=== PATIENT | female | born 1960 | race African-American/Black ===

== ENCOUNTER 2017-08-16 21:53 | Emergency (ER) | payer OTHER, MEDICARE, MEDICAID ==
[~2017-08-16] VITALS: Ht 185.4 cm; Wt 100.2 kg
[~2017-08-16 21:53] MED LIST: CEPHALEXIN500 MG OR; FLEXERIL OR; LORTAB 5 OR; NO MEDS; PLAVIX75 MG PO; PT DOES NOT KNOW MED; ULTRAM50 M1 OR; ULTRAM50 MG OR; UNKNOWN BP MED; [UNRECOGNIZED DRUG - REMARK]
[2017-08-16 22:19] VITALS: BP 168/108
== END 2017-08-17 00:04 | disposition home or self-care (01) | DRG 552 ==
LOC: ED 21:53
DX: S16.1XXA Strain of muscle, fascia and tendon at neck level, initial encounter (principal); E04.9 Nontoxic goiter, unspecified; S20.211A Contusion of right front wall of thorax, initial encounter; S20.212A Contusion of left front wall of thorax, initial encounter; V43.52XA Car driver injured in collision with other type car in traffic accident, initial encounter; Y92.414 Local residential or business street as the place of occurrence of the external cause; W22.11XA Striking against or struck by driver side automobile airbag, initial encounter

== ENCOUNTER 2017-09-02 11:55 | Emergency (ER) | payer MEDICARE, MEDICAID ==
[~2017-09-02] VITALS: Ht 185.4 cm; Wt 102.0 kg
[2017-09-02 12:30] VITALS: BP 160/96
== END 2017-09-02 12:26 | disposition home or self-care (01) ==
LOC: ED 11:55
DX: S00.451A Superficial foreign body of right ear, initial encounter (principal); I10 Essential (primary) hypertension; I25.2 Old myocardial infarction; G89.29 Other chronic pain; M54.9 Dorsalgia, unspecified; E78.00 Pure hypercholesterolemia, unspecified; X58.XXXA Exposure to other specified factors, initial encounter

== ENCOUNTER 2018-04-12 14:50 | Emergency (ER) | payer MEDICARE, MEDICAID ==
[~2018-04-12] VITALS: Ht 185.4 cm; Wt 101.4 kg
[2018-04-12 15:25] VITALS: BP 143/79
== END 2018-04-12 15:25 | disposition home or self-care (01) ==
LOC: ED 14:50
DX: M79.5 Residual foreign body in soft tissue (principal); I10 Essential (primary) hypertension; F17.210 Nicotine dependence, cigarettes, uncomplicated; Z79.899 Other long term (current) drug therapy

== ENCOUNTER 2018-05-19 16:16 | Emergency (ER) | payer MEDICARE, MEDICAID ==
[~2018-05-19] VITALS: Ht 185.4 cm; Wt 106.4 kg
[2018-05-19] MEDS ORDERED: RANITIDINE HCL300 MG PO (16:40)
[2018-05-19] MEDS ORDERED: NEURONTIN300 MG PO (16:41)
[2018-05-19] MEDS ORDERED: DIAZEPAM5 M1 PO (16:41)
[2018-05-19] MEDS ORDERED: TIZANIDINE HCL4 MG PO (16:41)
[2018-05-19] MEDS ORDERED: MELOXICAM15 MG PO (16:42)
[2018-05-19] MEDS ORDERED: HYDROMORPHON8 MG PO (16:42)
[2018-05-19] MEDS ORDERED: AMLODIPINE BESY10 MG PO (16:42)
[2018-05-19] MEDS ORDERED: MORPHINE SUL60 MG PO (16:42)
[2018-05-19] MEDS ORDERED: HYZAAR1 TA1 PO (16:43)
[2018-05-19 17:30] VITALS: BP 135/88
== END 2018-05-19 17:35 | disposition home or self-care (01) ==
LOC: ED 16:16
DX: S39.012A Strain of muscle, fascia and tendon of lower back, initial encounter (principal); S80.01XA Contusion of right knee, initial encounter; I10 Essential (primary) hypertension; G89.29 Other chronic pain; M25.562 Pain in left knee; M54.9 Dorsalgia, unspecified; F17.210 Nicotine dependence, cigarettes, uncomplicated; W01.0XXA Fall on same level from slipping, tripping and stumbling without subsequent striking against object, initial encounter; Y92.009 Unspecified place in unspecified non-institutional (private) residence as the place of occurrence of the external cause

== ENCOUNTER 2018-11-08 17:38 | Observation (INO) | payer MEDICARE, MEDICAID ==
[~2018-11-08] VITALS: Ht 185.4 cm; Wt 117.0 kg
[~2018-11-08 17:38] MED LIST changes: +AMLODIPINE BESY10 MG PO; +DIAZEPAM5 M1 PO; +HYDROMORPHON8 MG PO; +HYZAAR1 TA1 PO; +MELOXICAM15 MG PO; +MORPHINE SUL60 MG PO; +NEURONTIN300 MG PO; +RANITIDINE HCL300 MG PO; +TIZANIDINE HCL4 MG PO
[2018-11-08 23:10] LABS: URINE BLOOD DIPSTICK LARGE (NEGATIVE); URINE COLOR YELLOW; URINE GLUCOSE - DIPSTICK NEGATIVE (NEGATIVE); URINE KETONE TRACE mg/dL (NEGATIVE); URINE LEUK ESTERASE NEGATIVE (NEGATIVE); URINE NITRITE - DIPSTICK NEGATIVE (Negative); URINE PROTEIN - DIPSTICK >=300 mg/dL (NEG-TRACE); URINE SPECIFIC GRAVITY >=1.030; URINE UROBILINOGEN - DIPSTICK 0.2 E.U./dL (0.2)
[2018-11-08 23:14] LABS: HEMATOCRIT 49.1 % (37.0-47.0); HEMOGLOBIN 16.3 g/dl (12.0-16.0); IMMATURE GRANULOCYTES 0.5 % (0.0-5.0); MEAN CELL VOLUME 84.1 fL CALC (80.0-100.0); MEAN CORPUSCULAR HGB 27.9 pG CALC (26.0-32.0); MEAN CORPUSCULAR HGB CONC 33.2 g/L CALC (32.0-36.0); NEUT# 8.21 thou/uL (2.00-7.15); RED BLOOD COUNT 5.84 mill/uL (4.20-5.60); RED CELL DISTRI WIDTH 14.2 % (11.5-15.5)
[2018-11-08 23:26] LABS: ALBUMIN 5.3 g/dL (3.2-5.0); ALKALINE PHOSPHATASE 149 u/l (38-126); AMYLASE 124 u/l (30-110); ANION GAP 20 (6-22 (CALC)); BILIRUBIN, TOTAL 0.5 mg/dL (0.0-1.4); BUN 18 mg/dL (7-17); BUN/CREATININE RATIO 16 (12-20 (CALC)); CARBON DIOXIDE 21 mmol/l (22-30); CHLORIDE 105 mmol/l (95-108); CREATININE 1.1 mg/dL (0.5-1.0); GFR 51 ML/MIN (>=60 (CALC)); GFR FOR AFR.AMER. > 60 ML/MIN (>=60 (CALC)); LIPASE 94 u/l (23-300); POTASSIUM 4.1 mmol/l (3.5-5.1); SGOT/AST 30 u/l (14-36); SODIUM 141 mmol/l (137-146); TOTAL PROTEIN 9.8 g/dL (6.3-8.2)
[2018-11-08 23:32] LABS: URINE BILIRUBIN - DIPSTICK NEGATIVE (NEGATIVE)
[2018-11-08 23:33] LABS: URINE SQUAMOUS EPITHELIAL CELL FEW EPI/hpf (0-FEW)
[2018-11-08 23:34] LABS: URINE BACTERIA MANY hpf; URINE MUCUS FEW hpf (NONE-FEW)
[2018-11-09 03:35] VITALS: BP 134/76
[2018-11-09 04:35] VITALS: BP 176/74
[2018-11-09 08:00] VITALS: BP 177/82
[2018-11-09 09:11] LABS: HEMATOCRIT 44.4 % (37.0-47.0); HEMOGLOBIN 14.7 g/dl (12.0-16.0); IMMATURE GRANULOCYTES 0.3 % (0.0-5.0); MEAN CELL VOLUME 84.3 fL CALC (80.0-100.0); MEAN CORPUSCULAR HGB 27.9 pG CALC (26.0-32.0); MEAN CORPUSCULAR HGB CONC 33.1 g/L CALC (32.0-36.0); NEUT# 9.05 thou/uL (2.00-7.15); RED BLOOD COUNT 5.27 mill/uL (4.20-5.60); RED CELL DISTRI WIDTH 14.1 % (11.5-15.5)
[2018-11-09 12:25] LABS: C. DIFFICILE TOXIN A&B NEGATIVE (NEGATIVE)
[2018-11-09 15:15] VITALS: BP 174/89
[2018-11-09 15:52] LABS: ALBUMIN 4.3 g/dL (3.2-5.0); ALKALINE PHOSPHATASE 129 u/l (38-126); ANION GAP 15 (6-22 (CALC)); BILIRUBIN, TOTAL 0.5 mg/dL (0.0-1.4); BUN 19 mg/dL (7-17); BUN/CREATININE RATIO 19 (12-20 (CALC)); CARBON DIOXIDE 20 mmol/l (22-30); CHLORIDE 110 mmol/l (95-108); GFR 57 ML/MIN (>=60 (CALC)); GFR FOR AFR.AMER. > 60 ML/MIN (>=60 (CALC)); POTASSIUM 3.8 mmol/l (3.5-5.1); SGOT/AST 22 u/l (14-36); SODIUM 142 mmol/l (137-146); TOTAL PROTEIN 7.8 g/dL (6.3-8.2)
[2018-11-09 19:13] VITALS: BP 181/85
[2018-11-09 23:57] VITALS: BP 154/93
[2018-11-10 04:10] VITALS: BP 180/85
[2018-11-10 06:26] LABS: HEMATOCRIT 43.2 % (37.0-47.0); HEMOGLOBIN 14.1 g/dl (12.0-16.0); IMMATURE GRANULOCYTES 0.5 % (0.0-5.0); MEAN CELL VOLUME 85.4 fL CALC (80.0-100.0); MEAN CORPUSCULAR HGB 27.9 pG CALC (26.0-32.0); MEAN CORPUSCULAR HGB CONC 32.6 g/L CALC (32.0-36.0); NEUT# 7.42 thou/uL (2.00-7.15); RED BLOOD COUNT 5.06 mill/uL (4.20-5.60); RED CELL DISTRI WIDTH 14.2 % (11.5-15.5)
[2018-11-10 06:39] LABS: ALKALINE PHOSPHATASE 115 u/l (38-126); ANION GAP 13 (6-22 (CALC)); BILIRUBIN, TOTAL 0.5 mg/dL (0.0-1.4); BUN 14 mg/dL (7-17); BUN/CREATININE RATIO 16 (12-20 (CALC)); CARBON DIOXIDE 21 mmol/l (22-30); CHLORIDE 109 mmol/l (95-108); CREATININE 0.9 mg/dL (0.5-1.0); GFR > 60 ML/MIN (>=60 (CALC)); GFR FOR AFR.AMER. > 60 ML/MIN (>=60 (CALC)); MAGNESIUM 2.1 mg/dL (1.6-2.3); POTASSIUM 3.7 mmol/l (3.5-5.1); SGOT/AST 20 u/l (14-36); SODIUM 139 mmol/l (137-146); TOTAL PROTEIN 7.4 g/dL (6.3-8.2)
[2018-11-10 07:30] VITALS: BP 173/82
[2018-11-10 08:39] VITALS: BP 160/67
[2018-11-10 15:38] VITALS: BP 178/92
[2018-11-10 19:11] VITALS: BP 164/81
[2018-11-10] MEDS ORDERED: PROTONIX40 M2 PO (19:22)
[2018-11-10] MEDS ORDERED: METRONIDAZOL500 MG PO (19:22)
[2018-11-10] MEDS ORDERED: SUCRALFATE1 GM/10 ML PO (19:22)
[2018-11-10] MEDS ORDERED: LIDOCAINE21 PO (19:22)
== END 2018-11-10 20:35 | disposition home or self-care (01) ==
LOC: ED 17:38 → ED-I 11-09 02:00 → ED 11-09 02:38 → MS2 11-09 02:39
PROVIDERS: Emergency Medicine; ADMIT Internal Medicine Nephrology; ATTEND Internal Medicine Nephrology
DX: K52.9 Noninfective gastroenteritis and colitis, unspecified (principal); K29.70 Gastritis, unspecified, without bleeding; E86.0 Dehydration; N17.9 Acute kidney failure, unspecified; R73.9 Hyperglycemia, unspecified; I10 Essential (primary) hypertension; M17.11 Unilateral primary osteoarthritis, right knee; G89.4 Chronic pain syndrome; G62.9 Polyneuropathy, unspecified; K21.9 Gastro-esophageal reflux disease without esophagitis; K44.9 Diaphragmatic hernia without obstruction or gangrene; E66.9 Obesity, unspecified; F17.210 Nicotine dependence, cigarettes, uncomplicated; Z68.34 Body mass index [BMI] 34.0-34.9, adult; Z79.1 Long term (current) use of non-steroidal anti-inflammatories (NSAID); Z79.899 Other long term (current) drug therapy
CPT/HCPCS: Q9967; S0164

== ENCOUNTER → 2019-01-15 | Outpatient (REF) | payer MEDICARE, MEDICAID ==
[~2019-01-15] MED LIST changes: +BACTRIM DS1 TAB PO; +LIDOCAINE21 PO; +LOMOTIL2.5 MG PO; +METRONIDAZOL500 MG PO; +PROTONIX40 M2 PO; +SUCRALFATE1 GM/10 ML PO
== END | disposition home or self-care (01) ==
LOC: DI 08:27
PROVIDERS: ATTEND Orthopaedic Surgery
DX: M25.562 Pain in left knee (principal); Z47.1 Aftercare following joint replacement surgery; Z96.652 Presence of left artificial knee joint

== ENCOUNTER 2019-01-28 16:37 | Emergency (ER) | payer MEDICARE, MEDICAID ==
[~2019-01-28] VITALS: Ht 185.4 cm; Wt 114.0 kg
[~2019-01-28 16:37] MED LIST changes: -BACTRIM DS1 TAB PO; -LOMOTIL2.5 MG PO
[2019-01-28 17:12] LABS: HEMATOCRIT 43.1 % (37.0-47.0); HEMOGLOBIN 13.8 g/dl (12.0-16.0); IMMATURE GRANULOCYTES 0.4 % (0.0-5.0); MEAN CELL VOLUME 86.2 fL CALC (80.0-100.0); MEAN CORPUSCULAR HGB 27.6 pG CALC (26.0-32.0); NEUT# 4.3 thou/uL (2.00-7.15); RED CELL DISTRI WIDTH 14.6 % (11.5-15.5)
[2019-01-28 17:24] LABS: ALKALINE PHOSPHATASE 155 u/l (38-126); ANION GAP 17 (6-22 (CALC)); BILIRUBIN, TOTAL 0.5 mg/dL (0.0-1.4); BUN 23 mg/dL (7-17); BUN/CREATININE RATIO 20 (12-20 (CALC)); CARBON DIOXIDE 23 mmol/l (22-30); CHLORIDE 103 mmol/l (95-108); CREATININE 1.2 mg/dL (0.5-1.0); GFR 46 ML/MIN (>=60 (CALC)); GFR FOR AFR.AMER. 56 ML/MIN (>=60 (CALC)); LIPASE 90 u/l (23-300); POTASSIUM 4.3 mmol/l (3.5-5.1); SGOT/AST 25 u/l (14-36); SODIUM 139 mmol/l (137-146)
[2019-01-28 17:27] LABS: ALBUMIN 4.9 g/dL (3.2-5.0); TOTAL PROTEIN 9.2 g/dL (6.3-8.2)
[2019-01-28 20:34] LABS: URINE BILIRUBIN - DIPSTICK NEGATIVE (NEGATIVE); URINE BLOOD DIPSTICK TRACE-INTACT (NEGATIVE); URINE COLOR YELLOW; URINE GLUCOSE - DIPSTICK NEGATIVE (NEGATIVE); URINE KETONE NEGATIVE (NEGATIVE); URINE LEUK ESTERASE NEGATIVE (NEGATIVE); URINE NITRITE - DIPSTICK NEGATIVE (Negative); URINE PH 5.5 (4.5-8.0); URINE PROTEIN - DIPSTICK NEGATIVE (NEG-TRACE); URINE SPECIFIC GRAVITY >=1.030; URINE UROBILINOGEN - DIPSTICK 0.2 E.U./dL (0.2)
[2019-01-28] MEDS ORDERED: LOMOTIL2.5 MG PO (20:51)
[2019-01-28] MEDS ORDERED: BACTRIM DS1 TAB PO (20:51)
[2019-01-28 21:24] VITALS: BP 109/57
== END 2019-01-28 21:20 | disposition left against medical advice (07) ==
LOC: ED 16:37 → ED-I 20:40 → ED 21:20
PROVIDERS: Family Medicine
DX: R07.9 Chest pain, unspecified (principal); K52.9 Noninfective gastroenteritis and colitis, unspecified; R10.13 Epigastric pain; Z91.19 Patient's noncompliance with other medical treatment and regimen

== ENCOUNTER 2021-02-09 | Emergency (ER) | payer MEDICARE, MEDICAID ==
[~2021-02-09] MED LIST changes: +BACTRIM DS1 TAB PO; +LOMOTIL2.5 MG PO; +PHENERGAN25 MG/TAB PO
[2021-03-31] MEDS ORDERED: ALBUTEROL SUL0.083 % IN (09:02)
[2021-03-31] MEDS ORDERED: LIPITOR40 M1 PO (09:03)
[2021-03-31] MEDS ORDERED: FAMOTIDINE20 M1 PO (09:03)
[2021-03-31] MEDS ORDERED: MORPHINE SUL30 M3 PO (09:03)
[2021-03-31] MEDS ORDERED: TIZANIDINE4 MG PO (09:03)
[2021-03-31] MEDS ORDERED: METFORMIN HCL1000 MG PO (09:03)
[2021-03-31] MEDS ORDERED: ASPIRIN81 MG PO (09:03)
[2021-03-31] MEDS ORDERED: DICLOFENAC SODI75 MG PO (09:04)
[2021-03-31] MEDS ORDERED: ZOLPIDEM10 M1 PO (09:04)
[2021-03-31] MEDS ORDERED: GABAPENTIN100 MG PO (09:04)
[2021-03-31] MEDS ORDERED: LOSARTAN POTASS50 MG PO (09:04)
[2021-03-31] MEDS ORDERED: HYDROMORPHONE HY8 MG (09:05)
== END 2021-02-09 07:30 | disposition home or self-care (01) ==
PROC: 0HB2XZZ Excision of Right Ear Skin, External Approach (ICD-10-PCS; principal; 2021-02-09)
DX: L91.0 Hypertrophic scar (principal); E66.9 Obesity, unspecified; I10 Essential (primary) hypertension; F17.210 Nicotine dependence, cigarettes, uncomplicated; E78.5 Hyperlipidemia, unspecified; R05 Cough; R07.9 Chest pain, unspecified; E11.65 Type 2 diabetes mellitus with hyperglycemia

== ENCOUNTER 2023-01-25 15:05 | Emergency (ER) | payer MEDICARE, MEDICAID ==
[~2023-01-25] VITALS: Ht 185.4 cm; Wt 120.0 kg
[2023-01-25] VITALS (7 sets, daily range): BP systolic 109–148; BP diastolic 72–92
[~2023-01-25 15:05] MED LIST changes: +ALBUTEROL SUL0.083 % IN; +ASPIRIN81 MG PO; +DICLOFENAC SODI75 MG PO; +FAMOTIDINE20 M1 PO; +GABAPENTIN100 MG PO; +HYDROMORPHONE HY8 MG; +LIPITOR40 M1 PO; +LOSARTAN POTASS50 MG PO; +METFORMIN HCL1000 MG PO; +MORPHINE SUL30 M3 PO; +TIZANIDINE4 MG PO; +ZOLPIDEM10 M1 PO
[2023-01-25 15:44] LABS: BASO% 0.4 % (0-3); EOS% 0.6 % (0-8); HEMATOCRIT 48.5 % (37.0-47.0); HEMOGLOBIN 15.4 g/dl (12.0-16.0); IMMATURE GRANULOCYTES 0.1 % (0.0-5.0); LYMPH% 32.5 % (15-41); MEAN CELL VOLUME 88.7 fL CALC (80.0-100.0); MEAN CORPUSCULAR HGB 28.2 pG CALC (26.0-32.0); MEAN CORPUSCULAR HGB CONC 31.8 g/dL CAL (32.0-36.0); MONO% 5.9 % (2-13); NEUT# 4.69 thou/uL (2.00-7.15); NEUT% 60.5 % (42-76); RED BLOOD COUNT 5.47 mill/uL (4.20-5.60)
[2023-01-25 15:45] LABS: GFR FOR AFR.AMER. > 60 ML/MIN (>=60 (CALC)); GFR OTHER RACES 50 ML/MIN (>=60 (CALC))
[2023-01-25 16:15] LABS: ALBUMIN 4.5 g/dL (3.2-5.0); ALKALINE PHOSPHATASE 80 u/l (38-126); ANION GAP 13 (6-22 (CALC)); BILIRUBIN, TOTAL 0.3 mg/dL (0.02-1.3); BUN 19 mg/dL (8-23); BUN/CREATININE RATIO 18 (12-20 (CALC)); CHLORIDE 111 mmol/l (95-108); CREATININE 1.1 mg/dL (0.5-1.0); GFR FOR AFR.AMER. > 60 ML/MIN (>=60 (CALC)); GFR OTHER RACES 50 ML/MIN (>=60 (CALC)); LIPASE 164 u/l (23-300); POTASSIUM 4.4 mmol/l (3.5-5.1); SGOT/AST 21 u/l (9-36); SODIUM 140 mmol/l (137-146); TOTAL PROTEIN 7.7 g/dL (6.3-8.2)
[2023-01-25 16:21] LABS: CARBON DIOXIDE 20 mmol/l (22-30)
[2023-01-25 16:38] LABS: URINE BILIRUBIN - DIPSTICK NEGATIVE (NEGATIVE); URINE BLOOD DIPSTICK SMALL (NEGATIVE); URINE COLOR YELLOW; URINE GLUCOSE - DIPSTICK NEGATIVE (NEGATIVE); URINE KETONE NEGATIVE (NEGATIVE); URINE LEUK ESTERASE NEGATIVE (NEGATIVE); URINE PH 5.5 (4.5-8.0); URINE PROTEIN - DIPSTICK NEGATIVE (NEG-TRACE); URINE SPECIFIC GRAVITY >=1.030; URINE UROBILINOGEN - DIPSTICK 0.2 E.U./dL (0.2)
[2023-01-25 16:40] LABS: URINE NITRITE - DIPSTICK NEGATIVE (Negative)
[2023-01-25 16:51] LABS: URINE SQUAMOUS EPITHELIAL CELL FEW EPI/hpf (0-FEW)
[2023-01-25] MEDS ORDERED: PROTONIX40 M2 PO (17:10)
[2023-01-25] MEDS ORDERED: ZOFRAN4 MG/TAB PO (17:10)
== END 2023-01-25 17:39 | disposition home or self-care (01) ==
LOC: ED 15:05
PROVIDERS: Family Medicine
DX: R10.13 Epigastric pain (principal); I10 Essential (primary) hypertension; E66.9 Obesity, unspecified; E11.9 Type 2 diabetes mellitus without complications; E78.5 Hyperlipidemia, unspecified; M06.9 Rheumatoid arthritis, unspecified; F17.210 Nicotine dependence, cigarettes, uncomplicated; Z79.84 Long term (current) use of oral hypoglycemic drugs
CPT/HCPCS: Q9967; S0164

== ENCOUNTER 2023-05-20 10:58 | Emergency (ER) | payer MEDICARE, MEDICAID ==
[~2023-05-20] VITALS: Ht 185.4 cm; Wt 113.0 kg
[~2023-05-20 10:58] MED LIST changes: +ZOFRAN4 MG/TAB PO
[2023-05-20 11:05] VITALS: BP 144/80
[2023-05-20 11:20] VITALS: BP 110/92
[2023-05-20] MEDS ORDERED: KEFLEX500 MG PO (12:06)
[2023-05-20 12:28] VITALS: BP 144/80
== END 2023-05-20 12:06 | disposition home or self-care (01) ==
LOC: ED 10:58
PROC: 0HQGXZZ Repair Left Hand Skin, External Approach (ICD-10-PCS; principal; 2023-05-20)
DX: S61.211A Laceration without foreign body of left index finger without damage to nail, initial encounter (principal); I10 Essential (primary) hypertension; E11.9 Type 2 diabetes mellitus without complications; E78.5 Hyperlipidemia, unspecified; M06.9 Rheumatoid arthritis, unspecified; F17.210 Nicotine dependence, cigarettes, uncomplicated; W26.0XXA Contact with knife, initial encounter; Y93.G1 Activity, food preparation and clean up; Z79.84 Long term (current) use of oral hypoglycemic drugs

== ENCOUNTER 2024-11-28 16:39 | Emergency (ER) | payer MEDICARE, MEDICAID ==
[~2024-11-28] VITALS: Ht 182.9 cm; Wt 122.0 kg
[2024-11-28] VITALS (9 sets, daily range): BP systolic 131–158; BP diastolic 73–99
[~2024-11-28 16:39] MED LIST changes: +ALLEGRA HIVES180 MG; +DICYCLOMINE HCL20 MG PO; +FENOFIBRATE145 MG PO; +HYDROMORPHONE HY4 MG PO; +HYOSCYAMINE0.125 MG PO; +HYZAAR1 TAB PO; +KEFLEX500 MG PO; +OZEMPIC2 MG; +PEPCID40 MG PO
[2024-11-28] MEDS ORDERED: Pantoprazole Sodium 40 MG VIAL (Protonix) IV STA (17:24)
[2024-11-28] MEDS ORDERED: SODIUM CHLORIDE 0.9% 1,000 ML IV STA (17:24)
[2024-11-28] MEDS ORDERED: FAMOTIDINE 10MG/ML 2ML SDV IV ONE (17:25)
[2024-11-28] MEDS ORDERED: ALUM & MAG HYDROX-SIMETHICONE 30 ML PO ONE (17:30)
[2024-11-28] MEDS ORDERED: LIDOCAINE VISCOUS 2% 15 ML UDC PO ONE (17:30)
[2024-11-28 17:57] LABS: BASO% 0.4 % (0-3); EOS% 1.3 % (0-8); HEMATOCRIT 42.3 % (37.0-47.0); HEMOGLOBIN 13.8 g/dl (12.0-16.0); IMMATURE GRANULOCYTES 0.3 % (0.0-5.0); LYMPH% 40.9 % (15-41); MEAN CELL VOLUME 88.5 fL CALC (80.0-100.0); MEAN CORPUSCULAR HGB 28.9 pG CALC (26.0-32.0); MEAN CORPUSCULAR HGB CONC 32.6 g/dL CAL (32.0-36.0); MONO% 7.1 % (2-13); NEUT# 3.55 thou/uL (2.00-7.15); RED BLOOD COUNT 4.78 mill/uL (4.20-5.60); RED CELL DISTRI WIDTH 14.3 % (11.5-15.5)
[2024-11-28 18:06] LABS: ALBUMIN 4.2 g/dL (3.2-5.0); ALKALINE PHOSPHATASE 79 u/l (38-126); ANION GAP 13 (6-22 (CALC)); BILIRUBIN, TOTAL 0.3 mg/dL (0.02-1.3); BUN 21 mg/dL (8-23); BUN/CREATININE RATIO 19 (12-20 (CALC)); CARBON DIOXIDE 23 mmol/l (22-30); CHLORIDE 109 mmol/l (95-108); CREATININE 1.1 mg/dL (0.5-1.0); ESTIMATED GFR 56 ML/MIN (>=90 (CALC)); LIPASE 201 u/l (23-300); POTASSIUM 3.8 mmol/l (3.5-5.1); SGOT/AST 25 u/l (9-36); SODIUM 141 mmol/l (137-146); TOTAL PROTEIN 7.5 g/dL (6.3-8.2)
[2024-11-28 19:06] LABS: URINE BILIRUBIN - DIPSTICK Negative (NEGATIVE); URINE BLOOD DIPSTICK Trace-lysed (NEGATIVE); URINE GLUCOSE - DIPSTICK Negative (NEGATIVE); URINE KETONE Negative (NEGATIVE); URINE LEUK ESTERASE Negative (NEGATIVE); URINE NITRITE - DIPSTICK Negative (Negative); URINE PH 5.5 (4.5-8.0); URINE PROTEIN - DIPSTICK Negative (NEG-TRACE); URINE UROBILINOGEN - DIPSTICK 0.2 E.U./dL (0.2)
[2024-11-28 19:07] LABS: URINE COLOR Yellow
[2024-11-28] MEDS ORDERED: PEPCID20 MG PO (19:52)
[2024-11-28] MEDS ORDERED: PROTONIX40 M2 PO (19:52)
[2024-11-29] MEDS ORDERED: ESOMEPRAZOLE MA40 MG PO (13:32)
[2024-11-29] MEDS ORDERED: NEXIUM40 M1 PO (13:34)
== END 2024-11-28 20:28 | disposition home or self-care (01) ==
LOC: ED 16:39
PROVIDERS: Nurse Practitioner
DX: K29.70 Gastritis, unspecified, without bleeding (principal); K52.9 Noninfective gastroenteritis and colitis, unspecified; K21.9 Gastro-esophageal reflux disease without esophagitis; I10 Essential (primary) hypertension; E11.9 Type 2 diabetes mellitus without complications; E78.5 Hyperlipidemia, unspecified; M06.9 Rheumatoid arthritis, unspecified; F17.200 Nicotine dependence, unspecified, uncomplicated; Z79.84 Long term (current) use of oral hypoglycemic drugs; Z79.85 Long-term (current) use of injectable non-insulin antidiabetic drugs; T47.96XA Underdosing of unspecified agents primarily affecting the gastrointestinal system, initial encounter; Z91.128 Patient's intentional underdosing of medication regimen for other reason
CPT/HCPCS: J2470; Q9967

== ENCOUNTER 2025-01-24 13:43 | Emergency (ER) | payer MEDICARE, MEDICAID ==
[~2025-01-24] VITALS: Ht 182.9 cm; Wt 108.9 kg
[~2025-01-24 13:43] MED LIST changes: +ESOMEPRAZOLE MA40 MG PO; +NEXIUM40 M1 PO; +PEPCID20 MG PO
[2025-01-24 16:17] VITALS: BP 143/89
== END 2025-01-24 16:17 | disposition home or self-care (01) ==
LOC: ED 13:43
DX: M25.551 Pain in right hip (principal); I10 Essential (primary) hypertension; E11.9 Type 2 diabetes mellitus without complications; E78.5 Hyperlipidemia, unspecified; M06.9 Rheumatoid arthritis, unspecified; F17.200 Nicotine dependence, unspecified, uncomplicated; W01.0XXA Fall on same level from slipping, tripping and stumbling without subsequent striking against object, initial encounter; Z96.641 Presence of right artificial hip joint; Z79.84 Long term (current) use of oral hypoglycemic drugs; Z79.85 Long-term (current) use of injectable non-insulin antidiabetic drugs